=== PATIENT | male | born 1950 | race Caucasian/White ===

== ENCOUNTER 2017-04-08 07:52 | Emergency (ER) | payer OTHER ==
[~2017-04-08] VITALS: Ht 182.9 cm; Wt 98.4 kg
[~2017-04-08 07:52] MED LIST: AUGMENTIN875 MG PO; BACTRIM,SEPT1 TABLET PO; LEVEMIR100 UNIT/2 SC; LISINOPRIL5 MG PO; LOPRESSOR25 MG PO; NOVOLOG MI100 UNIT/M SQ
[2017-04-08 09:38] VITALS: BP 135/89
== END 2017-04-08 09:42 | disposition home or self-care (01) ==
LOC: EME 07:52
DX: E11.621 Type 2 diabetes mellitus with foot ulcer (principal); Z47.89 Encounter for other orthopedic aftercare
CPT/HCPCS: 99281; 99284

== ENCOUNTER → 2017-06-05 | Outpatient (CLI) | payer OTHER ==
[~2017-06-05] MED LIST changes: +LIPITOR10 MG PO; +LOW DOSE ASPIRI81 M1 PO; +MULTIPLE VITAM1 EACH PO; +TRESIBA FL200 UNIT/1 SC; +VITAMIN B12 100MCG PO
== END | disposition home or self-care (01) ==
LOC: PICC 09:00
DX: S91.301D Unspecified open wound, right foot, subsequent encounter (principal); M86.8X7 Other osteomyelitis, ankle and foot; B96.5 Pseudomonas (aeruginosa) (mallei) (pseudomallei) as the cause of diseases classified elsewhere